=== PATIENT | male | born 1985 | race Caucasian/White ===

== ENCOUNTER 2017-08-26 10:38 | Emergency (ER) | payer SELFPAY ==
[~2017-08-26] VITALS: Ht 177.8 cm; Wt 100.0 kg
[~2017-08-26 10:38] MED LIST: BACT800T5 PO; CLIN1CAP5 PO
[2017-08-26 10:41] VITALS: BP 166/96; PULSE 96; RESP 17; TEMP 98.5; O2SAT 97
--- NOTE | 2017-08-26 13:51 | PD ---
HPI Chief Complaint: Alcohol/Drug Intoxication Time Seen by Provider: 13:27 Travel History International Travel<30 days: No Contact w/Intl Traveler<30days: No Traveled to known affect area: No History of Present Illness HPI This patient is an IV drug user. He recently became homeless. He came to the ER because he didn't know what to do at this point. He is not having any acute medical complaint or problem. He denies feeling suicidal. No pain or fever or shortness of breath etc. Symptoms severity is mild. 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) Reported Meds & Prescriptions Reported Meds & Active Scripts Active No Active Prescriptions or Reported Medications Review of Systems General / Constitutional: No: Fever Eyes: No: Visual changes HENT: No: Headaches Cardiovascular: No: Chest Pain or Discomfort Respiratory: No: Shortness of Breath Gastrointestinal: No: Abdominal Pain Genitourinary: No: Dysuria Musculoskeletal: No: Pain Skin: No Rash Neurologic: No: Weakness Psychiatric: Positive: Substance Abuse Endocrine: No: Polydipsia Hematologic/Lymphatic: No: Easy Bruising Physical Exam Narrative GENERAL: Well-nourished, well-developed patient in no apparent distress. SKIN: Focused skin assessment reveals no rash and nodules. Skin is Warm and dry. HEAD: Atraumatic. Normocephalic. EYES: Pupils equal and round. No scleral icterus. No injection or drainage. ENT: No nasal bleeding or discharge. Mucous membranes pink and moist. NECK: Trachea midline. No JVD. CARDIOVASCULAR: Regular rate and rhythm. No murmur appreciated. RESPIRATORY: No accessory muscle use. Clear to auscultation. Breath sounds equal bilaterally. GASTROINTESTINAL: Abdomen soft, non-tender, nondistended. Hepatic and splenic margins not palpable. MUSCULOSKELETAL: No obvious deformities. No clubbing. No cyanosis. No edema. NEUROLOGICAL: Awake and alert. No obvious cranial nerve deficits. Motor grossly within normal limits. Normal speech. PSYCHIATRIC: Appropriate mood and affect; insight and judgment poor. Data Data Last Documented VS Vital Signs Date Time Temp Pulse Resp B/P (MAP) Pulse Ox O2 Delivery O2 Flow Rate FiO2 08/26/17 10:41 98.5 96 17 166/96 [phone] MDM Medical Decision Making Medical Screen Exam Complete: Yes Emergency Medical Condition: Yes Medical Record Reviewed: Yes Differential Diagnosis Substance abuse, depression, poor social status Narrative Course I have reviewed the patient's electronic medical record. Patient is clinically well with no physical complaint or abnormal exam finding No clinical suspicion of something like sepsis or endocarditis We discussed were [facility] access Center and I think that should be his first out. He says he knows where and he can get there. Diagnosis Primary Impression: Homeless single person Additional Impression: IV drug abuse Additional Instructions: Recommending S[facility] access Center visit The patient was advised to follow up with their physician and return if they worsen. Med/Other Pt SpecificInfo: Other Scripts No Active Prescriptions or Reported Meds Disposition: 01 DISCHARGE HOME Condition: Stable Maxwell Mack MD Aug 26, 2017 13:51
== END 2017-08-26 13:55 | disposition home or self-care (01) ==
LOC: NEPD 10:38
DX: F19.90 Other psychoactive substance use, unspecified, uncomplicated (principal); Z59.0 Homelessness
CPT/HCPCS: 99281